=== PATIENT | male | born 1960 | race Caucasian/White ===

== ENCOUNTER 2017-02-07 16:42 | Emergency (ER) | payer SELFPAY ==
--- NOTE | 2017-02-07 17:01 | PD ---
HPI . Heroin overdose Chief Complaint: Overdose Time Seen by Provider: 16:52 Travel History International Travel<30 days: No Contact w/Intl Traveler<30days: No History of Present Illness HPI This patient presented to us by EVAC status post a her on overdose. EVAC reports that the patient was found unresponsive by his girlfriend. She reportedly initiated CPR and called 911. Medics report an initial respiratory rate of 6. The patient did have a palpable pulse. They treated him with Narcan , 0.4 mg. The patient is now awake and alert. He denies any complaints and states that he wants to leave the hospital AGAINST MEDICAL ADVICE. [facility] Social History Tobacco Use: No Review of Systems Except as stated in HPI: all other systems reviewed are Neg Psychiatric: Positive: Substance Abuse Physical Exam Narrative GENERAL: Patient is now lucid. He is a thin, disheveled-appearing man. SKIN: warm/dry. HEAD: Normocephalic. Atraumatic. EYES: Pupils equal and round. No scleral icterus. No injection or drainage. ENT: No nasal bleeding or discharge. Mucous membranes pink and moist. NECK: Trachea midline. Full range of motion without pain.. CARDIOVASCULAR: Regular rate and rhythm. RESPIRATORY: No accessory muscle use. MUSCULOSKELETAL: No obvious deformities. NEUROLOGICAL: Awake and alert. No obvious cranial nerve deficits. Motor grossly within normal limits. Normal speech. PSYCHIATRIC: Appropriate mood and affect; insight and judgment poor. MDM Medical Decision Making Medical Screen Exam Complete: Yes Emergency Medical Condition: Yes Differential Diagnosis Differential diagnosis of altered mental status includes but is not limited to infection, electrolyte abnormality, neurological event, intoxication Narrative Course Patient presents to us via EVAC after a heroin overdose status post resuscitation Narcan. He is now awake and alert. He wishes to leave AMA. AMA: The risks of leaving against medical advice without further evaluation treatment were discussed with the patient. These risks include cardiac dysfunction, cardiac dysrhythmia, possible heart attack, possible stroke or . The patient indicated understanding of these risks and appeared to have the capacity to make this decision. Diagnosis Primary Impression: Accidental heroin overdose Qualified Codes: T40.1X1A - Poisoning by heroin, accidental (unintentional), initial encounter Disposition: 07 AGAINST MEDICAL ADVICE Stephanie Olivo MD Feb 07, 2017 17:01
== END 2017-02-07 17:29 | disposition left against medical advice (07) ==
LOC: EDBD 16:42 → NEPC 16:42
DX: T40.1X1A Poisoning by heroin, accidental (unintentional), initial encounter (principal)
CPT/HCPCS: 99283